=== PATIENT | female | born 1985 | race Caucasian/White ===

== ENCOUNTER → 2018-12-10 | Outpatient (CLI) | payer OTHER ==
[~2018-12-10] MED LIST: BUTA1CAP30 PO; CALC-534 PO; IBUP-1222 PO; METF-649 PO; MULT-308 PO; OXYC-302 PO; PREN1TAB60 PO; SUMA100T3 PO
[2018-12-10 14:50] LABS: BASOPHILS % (AUTO) 1 % (0-1); EOSINOPHILS # (AUTO) 0.18 x10^3/uL (0-0.4); EOSINOPHILS % (AUTO) 2 % (1-7); LYMPHOCYTES # (AUTO) 2.25 x10^3/uL (1-3.4); LYMPHOCYTES % (AUTO) 24 % (22-44); MD NO; MEAN CORPUSCULAR HEMOGLOBIN 30.5 pg (27.0-34.8); MEAN CORPUSCULAR HGB CONC 32.8 g/dL (32.4-35.8); MEAN CORPUSCULAR VOLUME 92.8 fL (80-100); MEAN PLATELET VOLUME 6.8 fL (7.4-10.4); MONOCYTES # (AUTO) 0.51 x10^3/uL (0.2-0.8); MONOCYTES % (AUTO) 5 % (2-9); NEUTROPHILS # (AUTO) 6.27 x10^3/uL (1.8-6.8); NEUTROPHILS % (AUTO) 67 % (42-75); PLATELET COUNT 412 x10^3/uL (130-400); RED BLOOD COUNT 4.06 x10^6/uL (3.82-5.3); RED CELL DISTRIBUTION WIDTH 14.3 % (9.6-15.2)
[2018-12-10 15:01] LABS: ALANINE AMINOTRANSFERASE 38 U/L (12-78); ALBUMIN 3.5 g/dL (3.4-5.0); ANION GAP 7 mmol/L (5-15); CALCIUM 8.8 mg/dL (8.5-10.1); CHLORIDE 107 mmol/L (98-107); CREATININE 0.66 mg/dL (0.55-1.02)
[2018-12-10 15:02] LABS: MICROSCOPIC AUTO
[2018-12-10 15:05] LABS: ALKALINE PHOSPHATASE 97 U/L (45-117); BILIRUBIN,TOTAL 0.2 mg/dL (0.2-1.0); TOTAL PROTEIN 7.4 g/dL (6.4-8.2)
[2018-12-10 15:05] LABS: CULTURE INDICATED? NO
== END | disposition home or self-care (01) ==
LOC: STAR 14:13 → MERGE 15:00
PROVIDERS: ATTEND Obstetrics & Gynecology
DX: Z01.818 Encounter for other preprocedural examination (principal); N84.0 Polyp of corpus uteri
CPT/HCPCS: 36415; 80053; 81001; 84702; 85025

== ENCOUNTER 2018-12-15 07:37 | Day surgery (SDC) | payer OTHER ==
[~2018-12-15] VITALS: Ht 144.8 cm; Wt 115.6 kg
[~2018-12-15 07:37] MED LIST changes: +BUPIVACAINE/PF-EPI 0.5% 1:200K ONE; +SILVER NITRATE STICK TP ONE
[2018-12-15] MEDS ORDERED: LACTATED RINGERS 1,000 ML IV SCH (08:12)
[2018-12-15] MEDS ORDERED: GABAPENTIN 300 MG CAPSULE PO ONE (08:30)
[2018-12-15] MEDS ORDERED: FAMOTIDINE 20 MG TABLET PO ONE (08:30)
[2018-12-15] MEDS ORDERED: SCOPOLAMINE PATCH, 1.5MG PATCH.TD72 TD ONE (08:30)
[2018-12-15 08:39] LABS: HCG UR SG 1.031 (1.003-1.030)
[2018-12-15] MEDS ORDERED: DEXAMETHASONE 4 MG/ML, 1ML ONE (09:28)
[2018-12-15] MEDS ORDERED: GLYCOPYRROLATE 0.2MG/1ML, 5ML ONE (09:28)
[2018-12-15] MEDS ORDERED: MIDAZOLAM 1 MG/ML, 2ML ONE (09:28)
[2018-12-15] MEDS ORDERED: LIDOCAINE-MPF 2% ,5ML ONE (09:28)
[2018-12-15] MEDS ORDERED: FENTANYL PF 250 MCG/5ML ONE (09:28)
[2018-12-15] MEDS ORDERED: ROCURONIUM 10MG/ML,5ML ONE (09:28)
[2018-12-15] MEDS ORDERED: PROPOFOL 10 MG/ML, 20ML ONE (09:28)
[2018-12-15] MEDS ORDERED: MIDAZOLAM 1 MG/ML, 2ML IV PRN ×2 (12:30→13:30)
[2018-12-15] MEDS ORDERED: HYDROcodone/APAP 7.5-325MG/15ML UDC PO PRN ×2 (12:30→13:30)
[2018-12-15] MEDS ORDERED: OXYcodone 5 MG/5 ML ORAL.SOL UDC PO PRN ×2 (12:30→13:30)
[2018-12-15] MEDS ORDERED: METOCLOPRAMIDE 5 MG/ML, 2ML IV PRN ×2 (12:30→13:30)
[2018-12-15] MEDS ORDERED: HYDROmorphone 1 MG/ML, 1ML INJ IV PRN ×2 (12:30→13:30)
[2018-12-15] MEDS ORDERED: ONDANSETRON 2MG/ML, 2ML IVPush PRN ×2 (12:30→13:30)
[2018-12-15] MEDS ORDERED: KETOROLAC 30 MG/1 ML IV PRN ×2 (12:30→13:30)
[2018-12-15] MEDS ORDERED: FENTANYL PF 100 MCG/2ML IV PRN ×2 (12:30→13:30)
[2018-12-15] MEDS ORDERED: MEPERIDINE/PF 25MG/0.5ML IVPush PRN ×2 (12:30→13:30)
[2018-12-15] MEDS ORDERED: LABETALOL 5MG/ML, 20ML IV PRN ×2 (12:30→13:30)
[2018-12-15] MEDS ORDERED: SILVER NITRATE STICK TP ONE (12:57)
== END 2018-12-15 15:15 | disposition home or self-care (01) ==
LOC: OUT 07:37 → MERGE 10:00 → OUT 15:15
PROVIDERS: ATTEND Obstetrics & Gynecology
DX: N84.0 Polyp of corpus uteri (principal); T83.32XA Displacement of intrauterine contraceptive device, initial encounter; N71.9 Inflammatory disease of uterus, unspecified; E66.01 Morbid (severe) obesity due to excess calories; F32.9 Major depressive disorder, single episode, unspecified; G43.009 Migraine without aura, not intractable, without status migrainosus; Z88.0 Allergy status to penicillin; Z79.84 Long term (current) use of oral hypoglycemic drugs; Z79.899 Other long term (current) drug therapy; Z83.3 Family history of diabetes mellitus; Z82.49 Family history of ischemic heart disease and other diseases of the circulatory system; Y83.8 Other surgical procedures as the cause of abnormal reaction of the patient, or of later complication, without mention of misadventure at the time of the procedure
CPT/HCPCS: 36415; 58300; 58558; 81025; 86850; 86900; 88305; J1100; J2250; J2704; J3010; J7120; J7298